=== PATIENT | female | born 1970 ===

== ENCOUNTER 2023-02-23 09:08 | Emergency (ER) | payer OTHER ==
[~2023-02-23] VITALS: Ht 167.6 cm; Wt 73.5 kg
[~2023-02-23 09:08] MED LIST: INTESTINEX680 MG PO; NASONEX17 GM NS; ZITHROMAX500 MG PO
[2023-02-23] MEDS ORDERED: METAXALONE800 MG PO (12:22)
[2023-02-23] MEDS ORDERED: MEDROLPACK PO (12:22)
== END 2023-02-23 12:38 | disposition home or self-care (01) ==
LOC: ER 09:08
DX: M75.32 Calcific tendinitis of left shoulder (principal); Z88.0 Allergy status to penicillin; Z88.1 Allergy status to other antibiotic agents